=== PATIENT | female | born 1980 ===

== ENCOUNTER 2016-07-28 10:29 | Emergency (ER) | payer MEDICAID, OTHER ==
[2016-07-28 10:30] VITALS: BMI 24.0
[2016-07-28 10:37] VITALS: BP 100/62; PULSE 72; RESP 19; TEMP 98.1; O2SAT 100
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
--- NOTE | 2016-07-28 13:41 | RAD ---
PROCEDURE: Radiographs of the chest and bilateral ribs HISTORY: rib pain COMPARISON: None available. TECHNIQUE: Frontal radiograph of the chest and multiple oblique radiographs of the bilateral ribs were obtained. FINDINGS: RIGHT RIBS: There is an acute nondisplaced fracture in the right lateral 9th rib. LEFT RIBS: No fracture or focal lesion visualized. LUNGS: The lungs are well inflated and clear. PLEURA: No pneumothorax or pleural fluid. CARDIOVASCULAR: Normal sized heart. No pulmonary vascular congestion. OTHER FINDINGS: None. IMPRESSION: Acute nondisplaced fracture in the right lateral 9th rib. Clear lungs. No pneumothorax.
== END 2016-07-28 13:36 | disposition home or self-care (01) ==
LOC: H.ER 10:29
DX: S22.31XA Fracture of one rib, right side, initial encounter for closed fracture (principal); W19.XXXA Unspecified fall, initial encounter; Y92.89 Other specified places as the place of occurrence of the external cause

== ENCOUNTER 2016-11-10 13:24 | Emergency (ER) | payer MEDICAID, OTHER ==
[2016-11-10 13:24] VITALS: BMI 24.0
[2016-11-10 13:37] VITALS: RESP 16
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
[2016-11-10] MEDS ORDERED: Oxycodone/Acetaminophen 5/325 mg Tab PO STA (14:19)
[2016-11-10] MEDS ORDERED: Oxycodone/Acetaminophen 5/325 mg Tab ONE (15:16)
[2016-11-10 15:36] LABS: RBC URINE 1 /hpf (0-3); URINE BILIRUBIN NEGATIVE (NEGATIVE); URINE BLOOD NEGATIVE (NEGATIVE); URINE COLOR STRAW (YELLOW); URINE GLUCOSE (UA) NEG (Normal); URINE KETONE NEGATIVE (NEGATIVE); URINE LEUKOCYTE ESTERASE MOD Leu/uL (Negative); URINE PROTEIN NEGATIVE (NEGATIVE); URINE UROBILINOGEN 0.2-1.0 mg/dL (0.2-1.0); WBC URINE < 1 /hpf (0-5)
[2016-11-10 15:40] LABS: BASO % 0.6 % (0.0-2.0); EOS # 0.1 K/uL (0.0-0.7); EOS % 1.8 % (0.0-4.0); HEMATOCRIT 31.5 % (34.0-47.0); LYMPH # 2.3 K/uL (1.0-4.3); LYMPH % 36.5 % (20.0-40.0); MEAN CELL VOLUME 75.9 fl (81.0-99.0); MEAN CORPUSCULAR HEMOGLOBIN 24.5 pg (27.0-31.0); MEAN CORPUSCULAR HGB CONC 32.3 g/dL (33.0-37.0); MEAN PLATELET VOLUME 7.8 fl (7.2-11.7); MONO # 0.6 K/uL (0.0-0.8); MONO % 9.8 % (0.0-10.0); NEUT # 3.2 K/uL (1.8-7.0); NEUT % 51.3 % (50.0-75.0); NRBC % 0.1 % (0.0-0.0); RED CELL DISTRIBUTION WIDTH 15.7 % (11.5-14.5); WHITE BLOOD COUNT 6.3 K/uL (4.8-10.8)
[2016-11-10 16:19] LABS: ALB/GLOB RATIO 1.3 (1.0-2.1); ALKALINE PHOSPHATASE 52 U/L (38-126); ALT/SGPT 34 U/L (9-52); AMYLASE 115 U/L (30-110); AST/SGOT 51 U/L (14-36); BILIRUBIN,TOTAL 0.6 mg/dl (0.2-1.3); BLOOD UREA NITROGEN 11 mg/dl (7-17); CARBON DIOXIDE 22 mmol/L (22-30); CHLORIDE 106 mmol/L (98-107); GFR AFRICAN-AMERICAN > 60; GLUCOSE,RANDOM 81 mg/dL (65-105); LIPASE 192 U/L (23-300); SODIUM 139 mmol/l (132-148); TOTAL PROTEIN 8.1 G/DL (6.3-8.2)
[2016-11-10 16:20] LABS: POTASSIUM 4.5 MMOL/L (3.6-5.0)
[2016-11-10] MEDS ORDERED: Iohexol 240 (50 ml) PO ONE (16:46)
[2016-11-10] MEDS ORDERED: Iohexol 240 (50 ml) ONE (17:11)
[2016-11-10] MEDS ORDERED: Iohexol 300 100 ML IJ ONE (18:16)
[2016-11-10] MEDS ORDERED: Sodium Chloride 0.9% 50 ML IV ONE (18:16)
[2016-11-10 20:03] VITALS: BP 115/80; PULSE 75; TEMP 97.9
--- NOTE | 2016-11-11 08:35 | CT ---
PROCEDURE: CT Abdomen and Pelvis with contrast HISTORY: rectal bleeding, abdominal pain COMPARISON: None. TECHNIQUE: Contrast dose: 90 mL Visipaque 320 Radiation dose: Total exam DLP = 679.54 mGy-cm. This CT exam was performed using one or more of the following dose reduction techniques: Automated exposure control, adjustment of the mA and/or kV according to patient size, and/or use of iterative reconstruction technique. FINDINGS: LOWER THORAX: Unremarkable. LIVER: Unremarkable. No gross lesion or ductal dilatation. GALLBLADDER AND BILE DUCTS: Unremarkable. PANCREAS: Unremarkable. No gross lesion or ductal dilatation. SPLEEN: Unremarkable. ADRENALS: Unremarkable. No mass. KIDNEYS AND URETERS: Unremarkable. No hydronephrosis. No solid mass. VASCULATURE: Unremarkable. No aortic aneurysm. BOWEL: Unremarkable. No obstruction. No gross mural thickening. APPENDIX: Normal appendix. PERITONEUM: Trace fluid in cul-de-sac LYMPH NODES: Unremarkable. No enlarged lymph nodes. BLADDER: Unremarkable. REPRODUCTIVE: Unremarkable uterus. Involuting left ovarian follicle, 2.2 cm. Cannot rule out ruptured follicle. BONES: No acute fracture. OTHER FINDINGS: None. IMPRESSION: Involuting left ovarian follicle, 2.2 cm. Trace fluid in cul-de-sac. Cannot rule out a ruptured ovarian follicle. The remainder of the examination is unremarkable. Preliminary interpretation of this examination was reported by [employer] at 7:23 p.m. on 11/10/2016. There is concurrence of this report with the preliminary interpretation.
[2016-11-22 05:39] VITALS: O2SAT 99
== END 2016-11-10 20:04 | disposition home or self-care (01) ==
LOC: H.ER 13:24
DX: K62.5 Hemorrhage of anus and rectum (principal); R10.2 Pelvic and perineal pain; M54.5 Low back pain; N83.209 Unspecified ovarian cyst, unspecified side
CPT/HCPCS: 74177; 80053; 81003; 81025; 82150; 83690; 85025; 99284; Q9966; Q9967

== ENCOUNTER 2017-03-31 12:59 | Emergency (ER) | payer SELFPAY ==
[2017-03-31 13:00] VITALS: BMI 24.0
[2017-03-31 13:22] VITALS: BP 108/68; PULSE 84; RESP 19; TEMP 98.1; O2SAT 100
--- NOTE | 2017-03-31 13:45 | ED PDOC ---
HPI: Female Pain Time Seen by Provider: 03/31/17 13:34 Chief Complaint (Nursing): Female Genitourinary Chief Complaint (Provider): Pelvic Pain History Per: Patient History/Exam Limitations: no limitations Onset/Duration Of Symptoms: Days (x 2 weeks) Current Symptoms Are (Timing): Intermittent Episodes Additional Complaint(s): Rosamaria Toeny is a 36-year-old female who presents to the ED complaining of left sided pelvic pain, associated with white vaginal discharge, occurring intermittently over the past 2 weeks. Missed last menstrual period but home test was negative. Patient has 1 sexual partner. Also complaining of dysuria. No fever. PMD: Dr. Arnaud Watters Past Medical History Reviewed: Historical Data, Nursing Documentation, Vital Signs Vital Signs: Last Vital Signs Temp 98.1 F 03/31/17 13:20 Pulse 84 03/31/17 13:20 Resp 19 03/31/17 13:20 BP 108/68 03/31/17 13:20 Pulse Ox 100 03/31/17 13:20 - Medical History PMH: Asthma, Gastritis Denies: Chronic Kidney Disease - Surgical History Surgical History: Endoscopy Other surgeries: Ectopic - Family History Family History: States: CAD - Social History Current smoker - smoking cessation education provided: No Alcohol: Social Drugs: Denies - Immunization History Hx Influenza Vaccination: No - Home Medications Home Medications: Ambulatory Orders Medication Instructions Recorded Naproxen [Naprosyn] 500 mg PO Q12H #20 tab 03/31/17 - Allergies Allergies/Adverse Reactions: Allergies Allergy/AdvReac Type Severity Reaction Status Date / Time No Known Allergies Allergy Verified 11/10/16 13:33 Review of Systems ROS Statement: Except As Marked, All Systems Reviewed And Found Negative Constitutional: Negative for: Fever Genitourinary Female: Positive for: Dysuria, Vaginal Discharge (white), Pelvic Pain Physical Exam - Reviewed Nursing Documentation Reviewed: Yes Vital Signs Reviewed: Yes - Physical Exam Appears: Positive for: Non-toxic, No Acute Distress Head Exam: Positive for: ATRAUMATIC, NORMAL INSPECTION, NORMOCEPHALIC Skin: Positive for: Normal Color, Warm, Dry Eye Exam: Positive for: EOMI, Normal appearance, PERRL Neck: Positive for: Normal, Supple Cardiovascular/Chest: Positive for: Regular Rate, Rhythm. Negative for: Murmur Respiratory: Positive for: Normal Breath Sounds. Negative for: Respiratory Distress Gastrointestinal/Abdominal: Positive for: Normal Exam, Soft. Negative for: Tenderness Pelvic Exam: Positive for: External Exam Normal, No Cerv. Motion Tender, No Masses, Discharge (Scant white mucous-y discharge), Tender Adnexa (Left) Extremity: Positive for: Normal ROM. Negative for: Pedal Edema, Deformity Neurologic/Psych: Positive for: Alert, Oriented (x 3). Negative for: Motor/ Sensory Deficits - Laboratory Results Urine POC: Negative - ECG O2 Sat by Pulse Oximetry: 100 Medical Decision Making Medical Decision Making: Time: 13:34 Initial Plan: * Urine dipstick * Urinalysis * Urine culture * Chlamydia/GC RNA * Pending Transvaginal US Time: 15:46 Transvaginal US: FINDINGS: UTERUS: Measures 10.0 x 5.0 x 6.2 cm. Normal in size and appearance. Small posterior fundal fibroid, 0.7 x 1.2 x 1.4 cm. ENDOMETRIUM: Measures 10 mm in diameter. Unremarkable. CERVIX: No cervical abnormality identified. RIGHT OVARY: Measures 2.3 x 1.0 x 2.8 cm. No solid mass. Normal flow. LEFT OVARY: Measures 3.1 x 1.6 x 2.5 cm. No solid mass. Normal flow. FREE FLUID: No significant free fluid noted. OTHER FINDINGS: None. IMPRESSION: 1.4 cm posterior fundal intramural fibroid. Otherwise unremarkable examination. Scribe Attestation: Documented by Ximena Guillen, acting as a scribe for Red Salinas MD Provider Scribe Attestation: All medical record entries made by the Scribe were at my direction and personally dictated by me. I have reviewed the chart and agree that the record accurately reflects my personal performance of the history, physical exam, medical decision making, and the department course for this patient. I have also personally directed, reviewed, and agree with the discharge instructions and disposition. Disposition - Clinical Impression Clinical Impression: Fibroid - Patient ED Disposition Is Patient to be Admitted: No Counseled Patient/Family Regarding: Studies Performed, Diagnosis, Need For Followup, Rx Given - Disposition Referrals: [facility] [Outside] Disposition: Routine/Home Disposition Time: 16:17 Condition: FAIR Prescriptions: Naproxen [Naprosyn] 500 mg PO Q12H #20 tab Instructions: Uterine Fibroids (ED) Forms: [employer] ([employer]ym[employer])
[2017-03-31 13:57] LABS: RBC URINE 3 /hpf (0-3); URINE BACTERIA RARE (<OCC); URINE BILIRUBIN NEGATIVE (NEGATIVE); URINE BLOOD NEGATIVE (NEGATIVE); URINE COLOR YELLOW (YELLOW); URINE GLUCOSE (UA) NEG (Normal); URINE KETONE NEGATIVE (NEGATIVE); URINE LEUKOCYTE ESTERASE MOD Leu/uL (Negative); URINE PROTEIN NEGATIVE (NEGATIVE); URINE UROBILINOGEN 0.2-1.0 mg/dL (0.2-1.0); WBC URINE 1 /hpf (0-5)
--- NOTE | 2017-03-31 15:48 | US ---
HISTORY: LLQ pain COMPARISON: None available. TECHNIQUE: Transvaginal FINDINGS: UTERUS: Measures 10.0 x 5.0 x 6.2 cm. Normal in size and appearance. Small posterior fundal fibroid, 0.7 x 1.2 x 1.4 cm. ENDOMETRIUM: Measures 10 mm in diameter. Unremarkable. CERVIX: No cervical abnormality identified. RIGHT OVARY: Measures 2.3 x 1.0 x 2.8 cm. No solid mass. Normal flow. LEFT OVARY: Measures 3.1 x 1.6 x 2.5 cm. No solid mass. Normal flow. FREE FLUID: No significant free fluid noted. OTHER FINDINGS: None. IMPRESSION: 1.4 cm posterior fundal intramural fibroid. Otherwise unremarkable examination.
== END 2017-03-31 16:27 | disposition home or self-care (01) ==
LOC: H.ER 12:59
DX: D25.1 Intramural leiomyoma of uterus (principal); N89.8 Other specified noninflammatory disorders of vagina; J45.909 Unspecified asthma, uncomplicated; Z82.49 Family history of ischemic heart disease and other diseases of the circulatory system

== ENCOUNTER 2017-05-20 11:06 | Emergency (ER) | payer MEDICAID ==
[2017-05-20 11:07] VITALS: BMI 24.0
[2017-05-20 11:20] VITALS: BP 134/71; PULSE 94; RESP 18; TEMP 98; O2SAT 100
--- NOTE | 2017-05-20 12:17 | ED PDOC ---
HPI: General Adult Time Seen by Provider: 05/20/17 11:30 Chief Complaint (Nursing): Flu-like Symptoms Chief Complaint (Provider): Flu like symptoms History Per: Patient Additional Complaint(s): 37 yo female, no PMH, Presents to ED currently 6-7 weeks G8, P5, Miscarriage 1, ectopic 1, presents to ED with complaints of bodyaches, cough, congestion, runny nose x 2 days. No abdominal pain, vaginal bleeding Of note: Pt has 5 children here to be evaluated with the same symptoms. Past Medical History Reviewed: Nursing Documentation, Vital Signs Vital Signs: Last Vital Signs Temp 98 F 05/20/17 11:16 Pulse 94 H 05/20/17 11:16 Resp 18 05/20/17 11:16 BP 134/71 05/20/17 11:16 Pulse Ox 100 05/20/17 12:18 - Medical History PMH: Asthma, Gastritis Denies: Chronic Kidney Disease - Surgical History Surgical History: Endoscopy - Family History Family History: States: CAD - Living Arrangements Living Arrangements: With Family - Social History Current smoker - smoking cessation education provided: No Alcohol: None Drugs: Denies - Immunization History Hx Influenza Vaccination: No - Home Medications Home Medications: Ambulatory Orders Medication Instructions Recorded Naproxen [Naprosyn] 500 mg PO Q12H #20 tab 03/31/17 Oseltamivir [Tamiflu] 75 mg PO BID 5 Days cap 05/20/17 - Allergies Allergies/Adverse Reactions: Allergies Allergy/AdvReac Type Severity Reaction Status Date / Time No Known Allergies Allergy Verified 11/10/16 13:33 Review of Systems ROS Statement: Except As Marked, All Systems Reviewed And Found Negative ENT: Positive for: Nose Congestion Respiratory: Positive for: Cough Physical Exam - Reviewed Nursing Documentation Reviewed: Yes Vital Signs Reviewed: Yes - Physical Exam Appears: Positive for: Well, Non-toxic, No Acute Distress Head Exam: Positive for: ATRAUMATIC, NORMAL INSPECTION, NORMOCEPHALIC Skin: Positive for: Normal Color, Warm, DRY Eye Exam: Positive for: EOMI, Normal appearance, PERRL ENT: Positive for: Normal ENT Inspection Neck: Positive for: Normal, Painless ROM Cardiovascular/Chest: Positive for: Regular Rate, Rhythm Respiratory: Positive for: CNT, Normal Breath Sounds Gastrointestinal/Abdominal: Positive for: Normal Exam, Bowel Sounds, Soft Back: Positive for: Normal Inspection Extremity: Positive for: Normal ROM Neurologic/Psych: Positive for: Alert, Oriented - ECG O2 Sat by Pulse Oximetry: 100 Medical Decision Making Medical Decision Making: No fever, antipyretics withheld Pt's daughter Flu A (+) Disposition - Clinical Impression Clinical Impression: Influenza - Patient ED Disposition Is Patient to be Admitted: No - Disposition Disposition: Routine/Home Disposition Time: 13:37 Condition: STABLE Prescriptions: Oseltamivir [Tamiflu] 75 mg PO BID 5 Days cap Instructions: Influenza (ED) Forms: [employer] (Georgian), [facility] ED School/Work Excuse
== END 2017-05-20 13:44 | disposition home or self-care (01) ==
LOC: H.ER 11:06
DX: J11.1 Influenza due to unidentified influenza virus with other respiratory manifestations (principal); O98.519 Other viral diseases complicating pregnancy, unspecified trimester

== ENCOUNTER 2017-06-14 18:00 | Emergency (ER) | payer MEDICAID ==
[2017-06-14 18:01] VITALS: BMI 24.0
[2017-06-14 18:42] VITALS: RESP 18
--- NOTE | 2017-06-14 19:38 | ED PDOC ---
HPI: Female Pain Time Seen by Provider: 06/14/17 19:37 Chief Complaint (Nursing): Female Genitourinary Chief Complaint (Provider): with abd pain History Per: Patient Additional Complaint(s): 37-year-old female, (1 miscarriage, 1 ectopic) presents with cramping lower abdominal pain and vaginal spotting that started yesterday. Patient states she is approximately 10 weeks . She also complains of persistent nausea with no vomiting. Patient does have mild dysuria. She has an appointment tomorrow with her OB. She denies fever or chills. OB: Dr Flannery Past Medical History Reviewed: Historical Data, Nursing Documentation, Vital Signs Vital Signs: Last Vital Signs Temp 98.1 F 06/14/17 18:40 Pulse 86 06/14/17 18:40 Resp 18 06/14/17 18:40 BP 105/68 06/14/17 18:40 Pulse Ox 99 06/14/17 18:40 - Medical History PMH: Asthma, Gastritis - Surgical History Surgical History: Endoscopy Other surgeries: surgery for ectopic - Family History Family History: States: CAD - Living Arrangements Living Arrangements: With Family - Social History Current smoker - smoking cessation education provided: No Alcohol: None Drugs: Denies - Home Medications Home Medications: Ambulatory Orders Medication Instructions Recorded Naproxen [Naprosyn] 500 mg PO Q12H #20 tab 03/31/17 Oseltamivir [Tamiflu] 75 mg PO BID 5 Days cap 05/20/17 Nitrofurantoin Macrocrystals 100 mg PO BID #14 cap 06/15/17 [Macrobid] - Allergies Allergies/Adverse Reactions: Allergies Allergy/AdvReac Type Severity Reaction Status Date / Time No Known Allergies Allergy Verified 06/14/17 18:39 Review of Systems ROS Statement: Except As Marked, All Systems Reviewed And Found Negative Constitutional: Negative for: Fever, Chills Cardiovascular: Negative for: Chest Pain Respiratory: Negative for: Cough, Shortness of Breath, SOB with Exertion Gastrointestinal: Positive for: Nausea, Abdominal Pain. Negative for: Vomiting Genitourinary Female: Positive for: Dysuria, Frequency, Vaginal Bleeding ( spotting). Negative for: Incontinence, Hematuria, Vaginal Discharge Physical Exam - Reviewed Nursing Documentation Reviewed: Yes Vital Signs Reviewed: Yes - Physical Exam Appears: Positive for: Well, Non-toxic, No Acute Distress Skin: Negative for: Rash Eye Exam: Positive for: Normal appearance ENT: Positive for: Normal ENT Inspection Cardiovascular/Chest: Positive for: Regular Rate, Rhythm Respiratory: Positive for: Normal Breath Sounds Gastrointestinal/Abdominal: Positive for: Other (Tenderness to the left adnexal region, no rebound or guarding) Back: Negative for: L CVA Tenderness, R CVA Tenderness Extremity: Positive for: Normal ROM Neurologic/Psych: Positive for: Alert, Oriented - Laboratory Results Urine POC: Positive - ECG O2 Sat by Pulse Oximetry: 99 Pulse Ox Interpretation: Normal - Other Rad OB US X-Ray: Read By Radiologist X-Ray Interpretation: see below Medical Decision Making Medical Decision Makin37 year old female with abdominal pain and vaginal spotting Travis: OB US Beta quant IVF IV Zofran U dip/U preg UA/culture US: FINDINGS: A single intrauterine gestation is identified with a crown-rump length measuring 33 mm, corresponding to an approximate gestational age of 10 weeks and one day. cardiac activity is identified 170 beats per minute. The cervix measures 5.1 cm, and is closed. The uterus is enlarged and demonstrates a focus of decreased echogenicity within the lower uterine body, to the left of midline measuring 18 mm in greatest dimension, likely a fibroid. The bilateral ovaries are unremarkable in echogenicity and size, and demonstrate normal flow. IMPRESSION: Single intrauterine gestation at approximately gestational age 10 weeks and one day. cardiac activity is identified. Cervix is closed. Small uterine fibroid. Patient feels better. She was able to tolerate liquids and solids in ED. Rx given for macrobid for UTI. Patient has appt tomorrow with her OB. Disposition - Clinical Impression Clinical Impression: Urinary tract infection, Abdominal pain during - Patient ED Disposition Is Patient to be Admitted: No Counseled Patient/Family Regarding: Studies Performed, Diagnosis, Need For Followup, Rx Given - Disposition Referrals: Darren Best MD [Medical Doctor] - Disposition: Routine/Home Disposition Time: 00:08 Condition: STABLE Additional Instructions: FOLLOW UP SCHEDULED TOMORROW WITH YOUR OB. TAKE ANTIBIOTICS DIRECTED. Prescriptions: Nitrofurantoin Macrocrystals [Macrobid] 100 mg PO BID #14 cap Instructions: - The Second Month, Urinary Tract Infections in Adults Forms: [employer] (Lithuanian) Results - Lab Results Lab Results: 06/14/17 06/14/17 06/14/17 22:20 22:20 22:20 Beta HCG, Quant [id number] Urine Color Yellow Urine Clarity Cloudy Urine pH 6.0 Ur Specific [place] 1.028 Urine Protein Negative Urine Glucose (UA) Neg Urine Ketones Negative Urine Blood Negative Urine Nitrate Negative Urine Bilirubin Negative Urine Urobilinogen 0.2-1.0 Ur Leukocyte Esterase Small Urine RBC (Auto) 3 Urine Microscopic WBC 6 H Ur Squamous Epith Cells 11 H Calcium Oxalate Crystal Many H Urine Bacteria Rare Blood Type B POSITIVE Antibody Screen Negative BBK History Checked Patient has bt
[2017-06-14] MEDS ORDERED: Sodium Chloride 0.9% 1,000 ML IV STA (20:57)
[2017-06-14 22:39] LABS: SQUAMOUS EPITHIAL 11 /hpf (0-5); URINE BACTERIA RARE (<OCC); URINE BILIRUBIN NEGATIVE (NEGATIVE); URINE BLOOD NEGATIVE (NEGATIVE); URINE CALCIUM OXALATE CRYSTALS MANY /hpf (<OCC); URINE CLARITY CLOUDY (Clear); URINE COLOR YELLOW (YELLOW); URINE GLUCOSE (UA) NEG (Normal); URINE LEUKOCYTE ESTERASE SMALL Leu/uL (Negative); URINE NITRATE NEGATIVE (NEGATIVE); URINE PROTEIN NEGATIVE (NEGATIVE); URINE UROBILINOGEN 0.2-1.0 mg/dL (0.2-1.0)
[2017-06-14 23:39] VITALS: BP 104/65; PULSE 77; TEMP 98.7
[2017-06-15 00:09] VITALS: O2SAT 99
--- NOTE | 2017-06-15 10:50 | US ---
PROCEDURE: OB Pelvic Ultrasound HISTORY: 10 weeks, abd pain, spotting MP 04/04/2017 COMPARISON: None available. FINDINGS: UTERUS: Gestational sac: Single intrauterine gestation. A yolk sac is, measuring 4.2 mm present. And embryonic pole is present measuring 3.3 cm Heart rate: 170 bpm. age (Ultrasound estimated): 9 weeks 4 days 0 weeks 5 days Melina-gestational hemorrhage: None. Date of delivery (Ultrasound estimated) : 01/13/2018 Uterus measures 12.9 x 9.2 x 7.7 cm. Normal in size and appearance. 1.4 x 2.0 x 1.2 cm fibroid, posterior outer myometrial upper uterine body is noted CERVIX: Measures 5.1 cm. Long and closed. No cervical abnormality seen. RIGHT OVARY: Measures 2.5 x 1.9 x 1.5 cm. No mass lesion. Normal flow. LEFT OVARY: Measures 2.6 x 2.9 x 2.5 cm. No solid mass. Normal flow. FREE FLUID: None. OTHER FINDINGS: None. IMPRESSION: Single intrauterine gestation with normal cardiac activity whose menstrual age by ultrasound parameters is 9 weeks 4 days 0 weeks 5 days. . . Patient's estimated date of delivery by ultrasound is 01/13/2018 Patient's clinical dates by LMP are 10 weeks 1 day
== END 2017-06-15 00:42 | disposition home or self-care (01) ==
LOC: H.ER 18:00
DX: O23.41 Unspecified infection of urinary tract in pregnancy, first trimester (principal); O99.511 Diseases of the respiratory system complicating pregnancy, first trimester; J45.909 Unspecified asthma, uncomplicated; Z36.9 Encounter for antenatal screening, unspecified; Z3A.10 10 weeks gestation of pregnancy; Z82.49 Family history of ischemic heart disease and other diseases of the circulatory system
CPT/HCPCS: 76815; 81003; 84702; 86850; 86900; 87086; 96360; 99284; J2405; J7040

== ENCOUNTER 2017-07-12 09:35 | Emergency (ER) | payer MEDICAID ==
[2017-07-12 09:36] VITALS: BMI 24.0
[2017-07-12 09:54] VITALS: O2SAT 100
--- NOTE | 2017-07-12 10:05 | ED PDOC ---
HPI: Female Pain Time Seen by Provider: 07/12/17 09:46 Chief Complaint (Nursing): Abdominal Pain History Per: Patient Onset/Duration Of Symptoms: Days (2), Waxing/Waning Severity: Moderate Pain Scale Rating Of: 3 Quality Of Discomfort: Other (Pulling) Associated Symptoms: Nausea, Vomiting. denies: Fever, Diarrhea, Urinary Symptoms Alleviating Factors: None Additional Complaint(s): LLq/left flank pain x 2 days. Denies vaginal bleeding. No dysuria. Has had nausea and vomiting since early but tolerating PO Abnormal Vaginal Bleeding: No Past Medical History Vital Signs: Last Vital Signs Temp 98.3 F 07/12/17 09:49 Pulse 104 H 07/12/17 09:49 Resp 16 07/12/17 09:49 BP 115/73 07/12/17 09:49 Pulse Ox 100 07/12/17 09:49 - Medical History PMH: Asthma, Gastritis Denies: Chronic Kidney Disease - Surgical History Surgical History: Endoscopy - Family History Family History: States: CAD - Immunization History Hx Influenza Vaccination: No - Home Medications Home Medications: Ambulatory Orders Medication Instructions Recorded Naproxen [Naprosyn] 500 mg PO Q12H #20 tab 03/31/17 Oseltamivir [Tamiflu] 75 mg PO BID 5 Days cap 05/20/17 Nitrofurantoin Macrocrystals 100 mg PO BID #14 cap 06/15/17 [Macrobid] Nitrofurantoin Macrocrystals 100 mg PO BID #14 cap 07/12/17 [Macrobid] - Allergies Allergies/Adverse Reactions: Allergies Allergy/AdvReac Type Severity Reaction Status Date / Time No Known Allergies Allergy Verified 06/14/17 18:39 Review of Systems Constitutional: Negative for: Fever Gastrointestinal: Positive for: Nausea, Vomiting, Abdominal Pain. Negative for : Diarrhea Genitourinary Female: Negative for: Dysuria Musculoskeletal: Negative for: Back Pain Physical Exam - Physical Exam Appears: Positive for: Non-toxic, No Acute Distress Gastrointestinal/Abdominal: Positive for: Bowel Sounds, Soft, Other (gravid. Mild LLQ/left flank tenderness) Back: Negative for: L CVA Tenderness, R CVA Tenderness - ECG O2 Sat by Pulse Oximetry: 100 Disposition - Clinical Impression Clinical Impression: Urinary tract infection, Abdominal pain in female - Patient ED Disposition Is Patient to be Admitted: No Counseled Patient/Family Regarding: Studies Performed, Diagnosis, Need For Followup, Rx Given - Disposition [facility] Disposition: Routine/Home Disposition Time: 13:33 Condition: FAIR Prescriptions: Nitrofurantoin Macrocrystals [Macrobid] 100 mg PO BID #14 cap Instructions: Urinary Tract Infections in Adults, Round Ligament Pain Forms: [facility] (Nauruan)
--- NOTE | 2017-07-12 13:04 | US ---
PROCEDURE: Fourteen weeks presenting with pain HISTORY: LLQ pain COMPARISON: 06/14/2017. TECHNIQUE: Standard protocol for this study/examination. FINDINGS: Transverse presentation. Anterior Placenta. No evidence of abruption or previa Gestational age derived from LMP 14 weeks 1 day Gestational age derived from the following biometric parameters 14 weeks 4 days . Biparietal diameter 2.63 cm Head circumference9.81 cm Abdominal circumference 8.26 cm Femur length 1.51 cm Estimated weight 100.00 g Calculated cardiac rate 160 beats per min. Closed cervix measuring 5.6 cm IMPRESSION: Fourteen weeks 4 days live intrauterine gestation. Adequate interval progression. DANIEL based on LMP: 01/09/2018 DANIEL based on biometry: 01/06/2018
[2017-07-12 13:43] VITALS: BP 122/79; PULSE 75; RESP 14; TEMP 98
== END 2017-07-12 14:04 | disposition home or self-care (01) ==
LOC: H.ER 09:35
DX: O23.40 Unspecified infection of urinary tract in pregnancy, unspecified trimester (principal)

== ENCOUNTER 2017-07-23 15:26 | Emergency (ER) | payer MEDICAID ==
[2017-07-23 15:27] VITALS: BMI 24.0
[2017-07-23 15:32] VITALS: TEMP 98.1
[2017-07-23] MEDS ORDERED: cefTRIAXone (Rocephin) 1 gm Inj IVPB ONE (15:41)
[2017-07-23] MEDS ORDERED: Sodium Chloride 0.9% 1,000 ML IV STA (15:41)
--- NOTE | 2017-07-23 15:44 | ED PDOC ---
HPI: Abdomen Time Seen by Provider: 07/23/17 15:33 Chief Complaint (Nursing): Abdominal Pain Chief Complaint (Provider): abd pain History Per: Patient (37 y/o female approx 16 week gestation here with lower abd pain described as crampy pain. States she was given macrobid rx for uti recently but did not complete. Denies any fevers/chills. patient has US in past documenting IUP but noted decrease movement.) Past Medical History Reviewed: Historical Data, Nursing Documentation, Vital Signs Vital Signs: Last Vital Signs Temp 98.1 F 07/23/17 15:29 Pulse 97 H 07/23/17 15:29 Resp 20 07/23/17 15:29 BP 110/67 07/23/17 15:45 Pulse Ox 98 07/23/17 15:45 - Medical History PMH: Asthma, Gastritis Denies: Chronic Kidney Disease - Surgical History Surgical History: Endoscopy - Family History Family History: States: CAD - Immunization History Hx Influenza Vaccination: No - Home Medications Home Medications: Ambulatory Orders Medication Instructions Recorded Naproxen [Naprosyn] 500 mg PO Q12H #20 tab 03/31/17 Oseltamivir [Tamiflu] 75 mg PO BID 5 Days cap 05/20/17 Nitrofurantoin Macrocrystals 100 mg PO BID #14 cap 06/15/17 [Macrobid] Nitrofurantoin Macrocrystals 100 mg PO BID #14 cap 07/12/17 [Macrobid] Cephalexin [Keflex] 500 mg PO TID #15 capsule 07/23/17 - Allergies Allergies/Adverse Reactions: Allergies Allergy/AdvReac Type Severity Reaction Status Date / Time No Known Allergies Allergy Verified 07/23/17 15:29 Review of Systems ROS Statement: Except As Marked, All Systems Reviewed And Found Negative Gastrointestinal: Positive for: Abdominal Pain Physical Exam - Reviewed Nursing Documentation Reviewed: Yes Vital Signs Reviewed: Yes - Physical Exam Appears: Positive for: Well, Non-toxic, No Acute Distress Head Exam: Positive for: ATRAUMATIC, NORMAL INSPECTION, NORMOCEPHALIC Skin: Positive for: Normal Color, Warm, DRY Eye Exam: Positive for: EOMI, Normal appearance, PERRL ENT: Positive for: Normal ENT Inspection Neck: Positive for: Normal, Painless ROM Cardiovascular/Chest: Positive for: Regular Rate, Rhythm Respiratory: Positive for: CNT, Normal Breath Sounds Gastrointestinal/Abdominal: Positive for: Normal Exam, Bowel Sounds, Soft, Tenderness (suprapubic tenderness) Back: Positive for: Normal Inspection Extremity: Positive for: Normal ROM Neurologic/Psych: Positive for: Alert, Oriented - Laboratory Results Result Diagrams: 07/23/17 16:02 07/23/17 16:02 - ECG O2 Sat by Pulse Oximetry: 98 - Progress ED Course And Treament: rocephin 1 gm iv x 1 dose NS 1 liter wide open us pelvix IMPRESSION: Single live intrauterine gestation with average ultrasound age of 16 weeks, 0 days. heart rate 170 beats per minute. Cervix long and closed. Disposition - Clinical Impression Clinical Impression: UTI (urinary tract infection), Abdominal pain affecting - Patient ED Disposition Is Patient to be Admitted: No - Disposition Disposition: Routine/Home Disposition Time: 17:55 Condition: FAIR Prescriptions: Cephalexin [Keflex] 500 mg PO TID #15 capsule Instructions: Urinary Tract Infection, Adult (DC), Threatened Miscarriage Forms: [facility] (Cambodian), [facility] ED School/Work Excuse
[2017-07-23] MEDS ORDERED: cefTRIAXone (Rocephin) 1 gm Inj ONE (16:08)
[2017-07-23 16:17] LABS: SQUAMOUS EPITHIAL 39 /hpf (0-5); URINE AMORPHOUS SEDIMENT OCC /ul (<OCC); URINE BILIRUBIN NEGATIVE (NEGATIVE); URINE BLOOD NEGATIVE (NEGATIVE); URINE CLARITY TURBID (Clear); URINE COLOR YELLOW (YELLOW); URINE GLUCOSE (UA) NEG (Normal); URINE LEUKOCYTE ESTERASE LARGE Leu/uL (Negative); URINE PROTEIN 30 mg/dL (NEGATIVE); URINE UROBILINOGEN 0.2-1.0 mg/dL (0.2-1.0)
[2017-07-23 16:23] LABS: BASO # 0.1 K/uL (0.0-0.2); BASO % 0.6 % (0.0-2.0); EOS # 0.3 K/uL (0.0-0.7); EOS % 2.9 % (0.0-4.0); HEMOGLOBIN 9.3 g/dL (12.0-16.0); LYMPH # 1.9 K/uL (1.0-4.3); LYMPH % 16.3 % (20.0-40.0); MEAN CELL VOLUME 73.4 fl (81.0-99.0); MEAN CORPUSCULAR HEMOGLOBIN 23.2 pg (27.0-31.0); MEAN CORPUSCULAR HGB CONC 31.6 g/dL (33.0-37.0); MEAN PLATELET VOLUME 7.4 fl (7.2-11.7); MONO # 1.3 K/uL (0.0-0.8); MONO % 10.6 % (0.0-10.0); NEUT # 8.3 K/uL (1.8-7.0); NEUT % 69.6 % (50.0-75.0); RBC 4.03 Mil/uL (3.80-5.20); WHITE BLOOD COUNT 11.9 K/uL (4.8-10.8)
[2017-07-23 16:26] LABS: BLOOD UREA NITROGEN 9 mg/dl (7-17); CALCIUM 9.4 mg/dL (8.4-10.2); GFR AFRICAN-AMERICAN > 60; GFR NON-AFRICAN AMERICAN > 60
--- NOTE | 2017-07-23 17:17 | US ---
PROCEDURE: OB Pelvic Ultrasound HISTORY: abdominal pain in LMP: 04/04/2017 COMPARISON: Pelvic ultrasound dated 07/12/2017 FINDINGS: UTERUS: Placenta: Anterior Presentation: Breech BPD: 3.2 cm compatible with estimated gestational age of 16 weeks, 1 day HC: 12.1 cm compatible with estimated gestational age of 16 weeks, 0 days AC: 10.4 cm compatible with estimated gestational age of 16 weeks, 2 days FL: 1.9 cm compatible with estimated gestational age of 15 weeks, 4 days Heart rate: 170 bpm. age (Ultrasound estimated): 16 weeks, 0 days Melina-gestational hemorrhage: None. Date of delivery (Ultrasound estimated) : 01/07/2018 CERVIX: Measures 5.0 cm. Long and closed. No cervical abnormality seen. RIGHT OVARY: Not visualized LEFT OVARY: Not visualized FREE FLUID: None. OTHER FINDINGS: None. IMPRESSION: Single live intrauterine gestation with average ultrasound age of 16 weeks, 0 days. heart rate 170 beats per minute. Cervix long and closed.
[2017-07-23 18:28] VITALS: BP 125/80; PULSE 75; RESP 16; O2SAT 99
== END 2017-07-23 18:30 | disposition home or self-care (01) ==
LOC: H.ER 15:26
DX: O23.42 Unspecified infection of urinary tract in pregnancy, second trimester (principal); Z3A.16 16 weeks gestation of pregnancy; O99.512 Diseases of the respiratory system complicating pregnancy, second trimester; J45.909 Unspecified asthma, uncomplicated
CPT/HCPCS: 76815; 80048; 81003; 81025; 84702; 85025; 87086; 96361; 96365; 99284; J0696; J7040

== ENCOUNTER 2017-08-13 01:17 | Emergency (ER) | payer MEDICAID, OTHER ==
[2017-08-13 01:33] VITALS: BMI 25.7
[2017-08-13] MEDS ORDERED: DiphenhydrAMINE 50 mg/ml Inj IM STA (01:36)
[2017-08-13 01:37] VITALS: BP 124/79; PULSE 71; RESP 16; TEMP 98.7; O2SAT 98
[2017-08-13] MEDS ORDERED: ISOPROPYL ALCOHOL TP ONE (01:41)
[2017-08-13] MEDS ORDERED: DiphenhydrAMINE 50 mg/ml Inj ONE (01:54)
--- NOTE | 2017-08-13 02:09 | ED PDOC ---
HPI: General Adult Time Seen by Provider: 08/13/17 01:36 Chief Complaint (Nursing): Abnormal Skin Integrity Chief Complaint (Provider): burning to skin History Per: Patient Additional Complaint(s): 37-year-old female currently 18 weeks presents to emergency department with pain and burning to hands after applying capsaicin cream on her hands. Patient was seen at [place] ED earlier today for muscle pain and was given prescription for capsaicin cream. He applied it for the first time this evening and felt instant burning sensation. Patient called ambulance and was brought here. Past Medical History Reviewed: Historical Data, Nursing Documentation, Vital Signs Vital Signs: Last Vital Signs Temp 98.7 F 08/13/17 01:33 Pulse 71 08/13/17 01:33 Resp 16 08/13/17 01:33 BP 124/79 08/13/17 01:33 Pulse Ox 98 08/13/17 02:09 - Medical History PMH: Asthma, Gastritis - Surgical History Surgical History: Endoscopy - Family History Family History: States: CAD - Living Arrangements Living Arrangements: With Family - Social History Current smoker - smoking cessation education provided: No Alcohol: None Drugs: Denies - Home Medications Home Medications: Ambulatory Orders Medication Instructions Recorded Naproxen [Naprosyn] 500 mg PO Q12H #20 tab 03/31/17 Oseltamivir [Tamiflu] 75 mg PO BID 5 Days cap 05/20/17 Nitrofurantoin Macrocrystals 100 mg PO BID #14 cap 06/15/17 [Macrobid] Nitrofurantoin Macrocrystals 100 mg PO BID #14 cap 07/12/17 [Macrobid] Cephalexin [Keflex] 500 mg PO TID #15 capsule 07/23/17 - Allergies Allergies/Adverse Reactions: Allergies Allergy/AdvReac Type Severity Reaction Status Date / Time No Known Allergies Allergy Verified 08/13/17 01:33 Review of Systems ROS Statement: Except As Marked, All Systems Reviewed And Found Negative Constitutional: Negative for: Fever Gastrointestinal: Negative for: Abdominal Pain Genitourinary Female: Negative for: Vaginal Bleeding, Pelvic Pain Musculoskeletal: Positive for: Other (burn and pain to hands) Physical Exam - Reviewed Nursing Documentation Reviewed: Yes Vital Signs Reviewed: Yes - Physical Exam Appears: Positive for: Well, Non-toxic, No Acute Distress Skin: Negative for: Rash Eye Exam: Positive for: Normal appearance Cardiovascular/Chest: Positive for: Regular Rate, Rhythm Respiratory: Positive for: Normal Breath Sounds Gastrointestinal/Abdominal: Positive for: Other (Gravid nontender abdomen) Extremity: Positive for: Other (Mild erythema noted to dorsal aspect of both hands, no blistering of skin noted) Neurologic/Psych: Positive for: Alert, Oriented - ECG O2 Sat by Pulse Oximetry: 98 Pulse Ox Interpretation: Normal Medical Decision Making Medical Decision Making: Impression: Superficial burn to hands from capsaicin cream Plan: IM benadryl Solution of alcohol and soap was used to wash cream off of hands. Patient felt relief after wash was completed. She was advised to discontinue use of topical cream and continue with wash solution at home. Also advised Benadryl as needed. Disposition - Clinical Impression Clinical Impression: Superficial burn - Patient ED Disposition Is Patient to be Admitted: No Counseled Patient/Family Regarding: Diagnosis, Need For Followup - Disposition [facility]errals[facility] [[facility]] Disposition: Routine/Home Disposition Time: 03:57 Condition: STABLE Additional Instructions: Wash affected area with alcohol and soap to reduce stinging on skin. Continue with 1-2 tablets of Benadryl every 6 hours as needed for itching and irritation. Follow-up with OB. Instructions: Skin Jim[facility] (DC) Forms: [email or web address] (Lithuanian)
== END 2017-08-13 04:31 | disposition home or self-care (01) ==
LOC: H.ER 01:17
DX: T23.102A Burn of first degree of left hand, unspecified site, initial encounter (principal); T23.101A Burn of first degree of right hand, unspecified site, initial encounter; Z3A.18 18 weeks gestation of pregnancy; J45.909 Unspecified asthma, uncomplicated; Z82.49 Family history of ischemic heart disease and other diseases of the circulatory system
CPT/HCPCS: 96372; 99283; J1200

== ENCOUNTER 2017-09-02 10:09 | Emergency (ER) | payer OTHER ==
[2017-09-02 10:58] VITALS: BMI 27.6
[2017-09-02 12:28] LABS: SQUAMOUS EPITHIAL 2 /hpf (0-5); URINE BILIRUBIN NEGATIVE (NEGATIVE); URINE BLOOD NEGATIVE (NEGATIVE); URINE CLARITY SLIGHTY-CLOUDY (Clear); URINE COLOR YELLOW (YELLOW); URINE GLUCOSE (UA) NEG (Normal); URINE LEUKOCYTE ESTERASE TRACE Leu/uL (Negative); URINE PROTEIN NEGATIVE (NEGATIVE); URINE UROBILINOGEN 0.2-1.0 mg/dL (0.2-1.0)
--- NOTE | 2017-09-02 14:39 | OBHP ---
Datetime: 09/02/2017 11:03 IP Adm Impression: , intrauterine ; No Active Labor; Intact Membranes IP Admit Plan: Observation/Evaluation Admit Comment, IP Provider: OB Attending/covering for OB hospitalist 37yo IUP at 21w c/o dysuria and vaginal burning x 2d. She noted some blood on tissue afte r wiping/urintaing. Lower abd cramping midlline with urinaton. No fever; no back pain. No urgency PNC: [facility] - placenta ant Aug 19 EDC Sept 14 + second tri screen PMH: UTI/asthma PSH: ectopic preg/laparoscopy NKA PSOH: denies smoking ETOH drugs POBGYNH: x 5 (full term); ecoptic x 1 A: IUP at 21w Dysuria ? UTIO/vagintis PLAN: check UA Patient noted to have yeast infection will send home with Terazol patient to follow up with PMD in 1 week Extremities - PN: Normal Abdomen - PN: Normal Lungs - PN: Normal Heart - PN: Normal HEENT - PN: Normal General - PN: Normal FHR - Baseline A Provider: + Comments, ACOG Physical Exam: PE: In NAD Abd soft NT Perineum: no ext lesions vagina white thisck curdy discharge Cx closed; no blood IP Hx Assessment: The History has been Reviewed and is Current IP Chief Complaint: Other Dilatation, Provider: 0 Genitourinary Exam: Normal
[2017-09-02 22:36] VITALS: BP 142/90; PULSE 77; O2SAT 98
== END 2017-09-02 15:15 | disposition home or self-care (01) ==
LOC: H.EROB2 10:09 → H.L&D 11:01 → H.EROB2 15:15
DX: O23.42 Unspecified infection of urinary tract in pregnancy, second trimester (principal); Z3A.21 21 weeks gestation of pregnancy